=== PATIENT | female | born 1995 | race Hispanic/Latino ===

== ENCOUNTER → 2016-12-10 | Outpatient (REF) | payer MEDICAID | LOC: M SFHCLERA 14:05 | PROVIDERS: ATTEND Physician Assistant | DX: R11.2 Nausea with vomiting, unspecified (principal) ==

== ENCOUNTER → 2016-12-29 | Outpatient (REF) | payer MEDICAID | LOC: M SFHCLERA 20:20 | PROVIDERS: ATTEND Physician Assistant | DX: R30.0 Dysuria (principal) ==